=== PATIENT | female | born 1990 | race Caucasian/White ===

== ENCOUNTER 2017-12-17 08:15 | Day surgery (SDC) | payer OTHER ==
[~2017-12-17] VITALS: Ht 157.5 cm; Wt 64.3 kg
[~2017-12-17 08:15] MED LIST: ANTIDEPRESSANT; ANTOXYBENA RIGHTEAR; AZIT250 PO; Amoxicillin500 MG PO; BCP; Bactrim Ds Tab1 EACH PO; CEFD300 PO; CEPH500 PO; CITA20; CYCL10; Colace100 MG PO; DOCU100 PO; Flagyl500 MG PO; HYDACE10B PO; HYDMOR4 PO; HYDR1TAB94 PO; IBUP600 PO; IBUP800; IBUP800 PO; LOPE2C; LORA1 PO; METR500 PO; Macrobid 100 M100 MG PO; Mobic15 MG; NAPR550 PO; Naprosyn500 MG PO; Norco 5-325 Ta1 EACH PO; Nortrel1 EAC1; ONDA4ODT; OXYACE5T; OXYACE5T PO; OXYACEL PO; OXYC1TAB11 PO; OXYC5 PO; PRAHYD1AE TOP; PRENATAL FORMU1 EAC1 PO; PROM25 PO; Percocet 10-321 EACH PO; Percocet 5-3251 EACH PO; Pyridium100 MG PO; SIME80CH PO; SODCHL.65S; TRIA80TC; Ultram50 MG PO; VARE1; Verotin-Gr Cap1 EACH PO; Vibramycin100 MG PO; Zofran Odt4 MG SL; Zofran4 MG PO; Zofran8 MG PO
== END 2017-12-17 12:03 | disposition home or self-care (01) ==
LOC: ORSCSDS 08:15
PROVIDERS: Obstetrics & Gynecology
PROC: 0U5F4ZZ Destruction of Cul-de-sac, Percutaneous Endoscopic Approach (ICD-10-PCS; principal; 2017-12-17 09:30)
DX: N94.6 Dysmenorrhea, unspecified (principal); N94.10 Unspecified dyspareunia; N92.5 Other specified irregular menstruation; N80.3 Endometriosis of pelvic peritoneum; K66.0 Peritoneal adhesions (postprocedural) (postinfection)
CPT/HCPCS: J0171; J0690; J1100; J2250; J2405; J2710; J3010; J7120

== ENCOUNTER 2019-01-03 11:02 | Day surgery (SDC) | payer OTHER ==
[~2019-01-03] VITALS: Ht 160 cm; Wt 65.0 kg
[~2019-01-03 11:02] MED LIST changes: +VARE1 PO; +[UNRECOGNIZED DRUG - OTHER] PO
--- NOTE | 2019-01-03 14:52 | NUR ---
01/03/19 0809 Tita Pacheco RN RECIEVED REPORT FROM [facility]. VSS. PT STATED THAT SHE IS NAUSEATED. RN TREATED WITH IV REGLAN ORDERED. PT IS TOLERATING PO FLUIDS WELL.
== END 2019-01-03 15:55 | disposition home or self-care (01) ==
LOC: ORSCSDS 11:02
PROVIDERS: Obstetrics & Gynecology
PROC: 0UT14ZZ Resection of Left Ovary, Percutaneous Endoscopic Approach (ICD-10-PCS; principal; 2019-01-03 12:30)
PROC: 0U5F4ZZ Destruction of Cul-de-sac, Percutaneous Endoscopic Approach (ICD-10-PCS; principal; 2019-01-03 12:30)
PROC: 0UT64ZZ Resection of Left Fallopian Tube, Percutaneous Endoscopic Approach (ICD-10-PCS; principal; 2019-01-03 12:30)
DX: N80.3 Endometriosis of pelvic peritoneum (principal); R10.2 Pelvic and perineal pain; N94.6 Dysmenorrhea, unspecified; N94.10 Unspecified dyspareunia; K66.0 Peritoneal adhesions (postprocedural) (postinfection); Z87.891 Personal history of nicotine dependence
CPT/HCPCS: 88305; J0690; J1100; J1885; J2250; J2405; J2704; J2765; J3010; J7120

== ENCOUNTER 2019-11-12 12:01 | Day surgery (SDC) | payer OTHER ==
[~2019-11-12] VITALS: Ht 160 cm; Wt 71.0 kg
[2019-11-12 12:58] LABS: BASOPHILS ABSOLUTE AUTO 0.08 K/mm3 (0.00-0.23); BASOPHILS PERCENT AUTO 1 % (0-2); EOSINOPHILS PERCENT AUTO 4 % (0-6); Hematocrit 37.9 % (33.0-51.0); Hemoglobin 12.5 g/dL (11.5-16.0); IMMATURE GRAN ABSOLUTE AUTO 0.02 K/mm3 (0.00-0.10); IMMATURE GRAN PERCENT AUTO 0 % (0-1); LYMPHOCYTES PERCENT AUTO 25 % (21-46); MONOCYTES ABSOLUTE AUTO 0.73 K/mm3 (0.16-1.47); MONOCYTES PERCENT AUTO 9 % (4-13); Mean Corpuscular HGB 30.3 pg (26.0-34.0); Mean Corpuscular Volume 92 fL (80-100); Mean Platelet Volume 10.4 fL (9.1-12.4); NEUTROPHILS ABSOLUTE AUTO 5.18 K/mm3 (1.96-9.15); NEUTROPHILS PERCENT AUTO 62 % (41-73); Platelet Count 331 K/mm3 (150-400); RDW Coefficient Variation 12.7 % (11.7-14.2); RDW Standard Deviation 43.4 fL (35.1-46.3); Red Blood Cell Count 4.13 M/mm3 (3.80-5.20); White Blood Cell Count 8.41 K/mm3 (4.00-11.30)
--- NOTE | 2019-11-12 14:23 | NUR ---
REPORT TO BULMARO SOLORZANO RN.
--- NOTE | 2019-11-12 14:31 | NUR ---
REPORT GIVEN TO PRAKASH MONTOYA RN TO ASSUME CARE OF PATIENT.
--- NOTE | 2019-11-12 14:37 | NUR ---
TOOK REPORT FROM URIEL NUÑEZ. ASSUMED CARE OF PT. PT STATES NO NEEDS AT THIS TIME. CALL LIGHT WITHIN REACH. WILL CONTINUE TO MONITOR.
--- NOTE | 2019-11-12 15:04 | NUR ---
ASSISTED PT TO RESTROOM AND BACK. PT TOW.
--- NOTE | 2019-11-12 17:20 | NUR ---
PT INTO STEP. TOLERATING HOT CHOCOLATE AND APPLESAUSE. NO C/O NAUSEA. PAIN "TOLERABLE" AT 09/01. PT STATES NO FURTHER NEEDS AT THIS TIME.
--- NOTE | 2019-11-12 17:50 | NUR ---
PT TOLERATING CHEESE AND ORAL PAIN MEDICATION. STATES NO FURTHER NEEDS AT THIS TIME. WILL CONTINUE TO MONITOR.
--- NOTE | 2019-11-12 18:39 | NUR ---
Patient up to Ambulate independently. Gait steady. Discharge instructions reviewed with patient. Patient verbalizes understanding. Copy given to patient to take home Discharged via wheelchair to private car for ride home.
== END 2019-11-12 22:41 | disposition home or self-care (01) ==
LOC: ORSCMMR 12:01
PROVIDERS: Obstetrics & Gynecology
PROC: 10D17ZZ Extraction of Products of Conception, Retained, Via Natural or Artificial Opening (ICD-10-PCS; principal; 2019-11-12 14:45)
DX: O02.1 Missed abortion (principal)
CPT/HCPCS: 85025; 86850; 86900; 86901; J0690; J1100; J1885; J2210; J2250; J2405; J2704; J3010; J7120

== ENCOUNTER 2019-11-14 16:24 | Emergency (ER) | payer OTHER ==
[~2019-11-14] VITALS: Ht 157.5 cm; Wt 74.8 kg
[2019-11-14 17:12] LABS: BASOPHILS ABSOLUTE AUTO 0.15 K/mm3 (0.00-0.23); BASOPHILS PERCENT AUTO 1 % (0-2); EOSINOPHILS ABSOLUTE AUTO 0.42 K/mm3 (0.00-0.68); EOSINOPHILS PERCENT AUTO 3 % (0-6); Hematocrit 36.1 % (33.0-51.0); Hemoglobin 11.9 g/dL (11.5-16.0); IMMATURE GRAN ABSOLUTE AUTO 0.04 K/mm3 (0.00-0.10); IMMATURE GRAN PERCENT AUTO 0 % (0-1); LYMPHOCYTES ABSOLUTE AUTO 3.67 K/mm3 (0.84-5.20); LYMPHOCYTES PERCENT AUTO 29 % (21-46); MONOCYTES ABSOLUTE AUTO 0.76 K/mm3 (0.16-1.47); MONOCYTES PERCENT AUTO 6 % (4-13); Mean Corpuscular HGB 30.4 pg (26.0-34.0); Mean Corpuscular Volume 92 fL (80-100); Mean Platelet Volume 10.4 fL (9.1-12.4); NEUTROPHILS ABSOLUTE AUTO 7.43 K/mm3 (1.96-9.15); NEUTROPHILS PERCENT AUTO 60 % (41-73); Platelet Count 353 K/mm3 (150-400); RDW Coefficient Variation 13.1 % (11.7-14.2); RDW Standard Deviation 44.3 fL (35.1-46.3); Red Blood Cell Count 3.91 M/mm3 (3.80-5.20); White Blood Cell Count 12.47 K/mm3 (4.00-11.30)
[2019-11-14] MEDS ORDERED: IBUP800 PO (17:43)
[2019-11-14] MEDS ORDERED: Percocet 5-3251 EACH PO (17:43)
[2019-11-14 17:45] LABS: Alanine Aminotransfer (ALT/SGP 38 U/L (12-78); Albumin, Blood 3.3 g/dL (3.4-5.0); Albumin/Globulin Ratio 0.9 (0.8-1.8); Alk Phos 69 U/L (50-136); Anion Gap 9 mmol/L (6-16); Aspartate Aminotrans (AST/SGOT 28 U/L (12-37); Bilirubin, Total 0.3 mg/dL (0.1-1.0); Blood Urea Nitrogen 14 mg/dL (8-24); Bun/Creatinine Ratio 20.3 (12.0-20.0); CO2, Blood 22 mmol/L (21-32); Calcium, Blood 8.1 mg/dL (8.5-10.1); Chloride, Blood 112 mmol/L (98-108); Creatinine, Blood 0.69 mg/dL (0.40-1.00); Globulin, Blood 3.7 g/dL (2.2-4.0); Glomerular Filtration Rate >60 (60-); Glucose, Blood 104 mg/dL (70-99); Potassium, Blood 3.1 mmol/L (3.5-5.5); Sodium, Blood 143 mmol/L (136-145)
[2019-11-14 17:46] LABS: Source, Urine Clean Catch
[2019-11-14 17:48] LABS: Bilirubin, Urine Neg (Neg); Blood, Urine 1+ (Neg); Glucose Qualitative, Urine Neg (Neg); Ketones, Urine Neg (Neg); Leukocyte Esterase, Urine 1+ (Neg); Nitrite, Urine Neg (Neg); Protein, Urine Neg (Neg); Urobilinogen, Urine NORM (Normal)
[2019-11-14 17:59] LABS: Appearance, Urine Clear (Clear); Color, Urine Yellow (P-Yellow)
[2019-11-14 18:00] LABS: Beta HCG, Quantitative, Serum 1083 mIU/mL (0-3)
[2019-11-14 18:00] LABS: Bacteria Few /hpf; Red Blood Cells, Urine 0-2 /hpf (0-2); Squamous Epithelial Cells Many /hpf (Few); White Blood Cells, Urine 0-2 /hpf (0-5)
[2019-11-14] MEDS ORDERED: CODACE30 PO (18:38)
== END 2019-11-14 19:09 | disposition home or self-care (01) ==
LOC: ER 16:24
PROVIDERS: Physician Assistant
DX: G89.18 Other acute postprocedural pain (principal); R10.2 Pelvic and perineal pain; Z87.891 Personal history of nicotine dependence; Z98.890 Other specified postprocedural states
CPT/HCPCS: 36415; 76857; 80053; 81001; 83605; 83690; 84702; 85025; 87086; 96374; 99284-25; J2405

== ENCOUNTER 2019-12-04 11:48 | Day surgery (SDC) | payer OTHER ==
[~2019-12-04] VITALS: Ht 157.5 cm; Wt 73.0 kg
[~2019-12-04 11:48] MED LIST changes: +CODACE30 PO
[2019-12-04] MEDS ORDERED: PRENATAL VITAM1 EAC5 PO (12:33)
[2019-12-04] MEDS ORDERED: TOPI50 PO (12:33)
[2019-12-04] MEDS ORDERED: SUMA25 PO (12:34)
--- NOTE | 2019-12-04 12:52 | NUR ---
12/04/19 1252 Jocelyn Laws (Elena 1ST IV INFILTRATED BY [facility] INFILTRATED. [facility] [place] 1258
--- NOTE | 2019-12-04 14:52 | NUR ---
12/04/19 1452 O'Neals,Elizabeth PERCOCET GIVEN FOR PAIN 10/02. RESOLVED AFTER 20 MINUTES NOW 08/04. AMBU GAIT STEADY TO HOME
== END 2019-12-04 14:48 | disposition home or self-care (01) ==
LOC: ORSCSDS 11:48
PROVIDERS: Obstetrics & Gynecology
PROC: 10D17ZZ Extraction of Products of Conception, Retained, Via Natural or Artificial Opening (ICD-10-PCS; principal; 2019-12-04 13:00)
DX: O03.4 Incomplete spontaneous abortion without complication (principal); F32.9 Major depressive disorder, single episode, unspecified; R00.0 Tachycardia, unspecified; F17.210 Nicotine dependence, cigarettes, uncomplicated
CPT/HCPCS: 84702; 88305; J0690; J1100; J1885; J2210; J2250; J2405; J2704; J3010; J7120

== ENCOUNTER 2021-10-28 06:06 | Day surgery (SDC) | payer OTHER ==
[~2021-10-28] VITALS: Ht 160 cm; Wt 72.9 kg
[~2021-10-28 06:06] MED LIST changes: +DICL75ER PO; +PRENATAL VITAMIN PLU PO; +SUMA25 PO; +TOPI50 PO
--- NOTE | 2021-10-28 07:06 | NUR ---
PT RECENTLY TO [facility]. FAMILY PRESENT. Ambulatory in Day Surgery. History, Chart, Medications and Allergies reviewed before start of procedure.Lungs clear T/O to Auscultation. Patient confirms NPO status and agrees with scheduled surgery. Pre-Op teaching done. Pt verbalizes understanding. Patient States Post-Procedure ride home has been arranged.
[2021-10-28] MEDS ORDERED: NURTEC ODT75 MG PO (07:14)
--- NOTE | 2021-10-28 08:21 | NUR ---
10/28/21 0821 Kirsten Wolfe PRIOR TO SURGERY START LAFLEUR TABLE IN PLACE & SECURE TO PROTECT PATIENT'S FACE,HEAD, AND INTUBATION TUBE.
--- NOTE | 2021-10-28 12:11 | NUR ---
REPORT TO MIKE DESIR RN. PT AWAKE AND TOLERATING FOOD WITHOUT GRIMACE OR GAURDING.
--- NOTE | 2021-10-28 12:15 | NUR ---
PT REQUEST FOR TO COME IN TO SEE PT, TO SDS/STEP. PT REPORTS HAVING APPLESAUCE FOR SNACK. PT REQ PAIN PILL. PT REPORTS HAVING PERCOCET PREVIOUSLY. PT HAS SMALL AMT OF BLOOD ON ASTRID PAD. INCISIONS APPEAR WNL, SHOWN TO THIS RN BY Comfort TREVINO. PT BEEN ASSISTED WITH ADL'S PRN.
--- NOTE | 2021-10-28 13:56 | NUR ---
Patient up to Ambulate independently. Gait steady. Discharge instructions reviewed with patient. Patient verbalizes understanding. Copy given to patient to take home. Patient States Post-Procedure ride home has been arranged. Discharged via wheelchair to private car for ride home. PT HAD DRAINAGE AFTER STANDING, OTHER FEMALE RN L.H. TO BEDSIDE, REPORTS APPEARS NORMAL AMT AFTER STANDING.
== END 2021-10-28 13:56 | disposition home or self-care (01) ==
LOC: ORSCMMR 06:06 → ORD 07:30 → ORSCMMR 13:56
PROVIDERS: Obstetrics & Gynecology
PROC: 0DNW4ZZ Release Peritoneum, Percutaneous Endoscopic Approach (ICD-10-PCS; principal; 2021-10-28 07:30)
PROC: 0UDB8ZX Extraction of Endometrium, Via Natural or Artificial Opening Endoscopic, Diagnostic (ICD-10-PCS; principal; 2021-10-28 07:30)
DX: N80.3 Endometriosis of pelvic peritoneum (principal); N92.1 Excessive and frequent menstruation with irregular cycle; N94.6 Dysmenorrhea, unspecified; N94.10 Unspecified dyspareunia; R10.2 Pelvic and perineal pain
CPT/HCPCS: 58662; S2900; 84702; 88305; A9270; J0690; J1100; J1885; J2250; J2405; J2704; J3010; J7120

== ENCOUNTER 2022-10-10 06:56 | Day surgery (SDC) | payer OTHER ==
[~2022-10-10] VITALS: Ht 157.5 cm; Wt 75.5 kg
[~2022-10-10 06:56] MED LIST changes: +NURTEC ODT75 MG PO
[2022-10-10] MEDS ORDERED: Bentyl20 MG (07:31)
[2022-10-10 09:26] VITALS: BP 108/70
== END 2022-10-10 09:34 | disposition home or self-care (01) ==
LOC: ORSCSDS 06:56
PROVIDERS: Internal Medicine Gastroenterology
PROC: 0DJD8ZZ Inspection of Lower Intestinal Tract, Via Natural or Artificial Opening Endoscopic (ICD-10-PCS; principal; 2022-10-10 08:15)
PROC: 0DB98ZX Excision of Duodenum, Via Natural or Artificial Opening Endoscopic, Diagnostic (ICD-10-PCS; principal; 2022-10-10 08:15)
PROC: 0DB78ZX Excision of Stomach, Pylorus, Via Natural or Artificial Opening Endoscopic, Diagnostic (ICD-10-PCS; principal; 2022-10-10 08:15)
DX: R19.5 Other fecal abnormalities (principal); R10.84 Generalized abdominal pain; R11.0 Nausea; K25.9 Gastric ulcer, unspecified as acute or chronic, without hemorrhage or perforation; K59.09 Other constipation; Z87.891 Personal history of nicotine dependence; Z79.899 Other long term (current) drug therapy
CPT/HCPCS: 88305; 88342; J2250; J2704; J7120

== ENCOUNTER → 2023-01-03 | Outpatient (CLI) | payer OTHER ==
[~2023-01-03] MED LIST changes: +Bentyl20 MG
[2023-01-03 18:56] LABS: BASOPHILS ABSOLUTE AUTO 0.19 K/mm3 (0.00-0.23); BASOPHILS PERCENT AUTO 2 % (0-2); EOSINOPHILS ABSOLUTE AUTO 1.58 K/mm3 (0.00-0.68); EOSINOPHILS PERCENT AUTO 13 % (0-6); Hematocrit 41.2 % (33.0-51.0); IMMATURE GRAN ABSOLUTE AUTO 0.04 K/mm3 (0.00-0.10); IMMATURE GRAN PERCENT AUTO 0 % (0-1); LYMPHOCYTES ABSOLUTE AUTO 3.24 K/mm3 (0.84-5.20); LYMPHOCYTES PERCENT AUTO 26 % (21-46); MONOCYTES ABSOLUTE AUTO 0.72 K/mm3 (0.16-1.47); MONOCYTES PERCENT AUTO 6 % (4-13); Mean Corpuscular HGB 31.2 pg (26.0-34.0); Mean Corpuscular Volume 92 fL (80-100); Mean Platelet Volume 10.7 fL (9.1-12.4); NEUTROPHILS ABSOLUTE AUTO 6.56 K/mm3 (1.96-9.15); NEUTROPHILS PERCENT AUTO 53 % (41-73); Platelet Count 328 K/mm3 (150-400); RDW Coefficient Variation 12.9 % (11.7-14.2); RDW Standard Deviation 42.9 fL (35.1-46.3); Red Blood Cell Count 4.49 M/mm3 (3.80-5.20); White Blood Cell Count 12.33 K/mm3 (4.00-11.30)
[2023-01-03 19:07] LABS: Albumin, Blood 4.2 g/dL (3.4-5.0); Albumin/Globulin Ratio 1.2 (0.8-1.8); Bilirubin, Total 0.1 mg/dL (0.1-1.0); Bun/Creatinine Ratio 24.1 (12.0-20.0); Calcium, Blood 9.2 mg/dL (8.5-10.1); Creatinine, Blood 0.83 mg/dL (0.40-1.00); Globulin, Blood 3.6 g/dL (2.2-4.0); Potassium, Blood 3.5 mmol/L (3.5-5.5); Total Protein, Blood 7.8 g/dL (6.4-8.2)
== END ==
LOC: LAB 18:52 → LAB SHORT 18:52
PROVIDERS: Family Medicine
DX: R10.9 Unspecified abdominal pain (principal)
CPT/HCPCS: 80053; 83690; 85025

== ENCOUNTER → 2023-04-13 | Outpatient (CLI) | payer OTHER ==
[2023-04-13 10:09] LABS: BASOPHILS PERCENT AUTO 1 % (0-2); EOSINOPHILS PERCENT AUTO 6 % (0-6); Hematocrit 40.2 % (33.0-51.0); Hemoglobin 13.6 g/dL (11.5-16.0); IMMATURE GRAN ABSOLUTE AUTO 0.02 K/mm3 (0.00-0.10); IMMATURE GRAN PERCENT AUTO 0 % (0-1); LYMPHOCYTES ABSOLUTE AUTO 2.45 K/mm3 (0.84-5.20); LYMPHOCYTES PERCENT AUTO 32 % (21-46); MONOCYTES ABSOLUTE AUTO 0.55 K/mm3 (0.16-1.47); MONOCYTES PERCENT AUTO 7 % (4-13); Mean Corpuscular HGB 30.6 pg (26.0-34.0); Mean Corpuscular HGB Conc 33.8 g/dL (31.5-36.5); Mean Corpuscular Volume 91 fL (80-100); Mean Platelet Volume 10.5 fL (9.1-12.4); NEUTROPHILS ABSOLUTE AUTO 4.15 K/mm3 (1.96-9.15); NEUTROPHILS PERCENT AUTO 53 % (41-73); Platelet Count 323 K/mm3 (150-400); RDW Coefficient Variation 12.8 % (11.7-14.2); RDW Standard Deviation 42.2 fL (35.1-46.3); Red Blood Cell Count 4.44 M/mm3 (3.80-5.20); White Blood Cell Count 7.77 K/mm3 (4.00-11.30)
[2023-04-13 10:19] LABS: Albumin, Blood 3.9 g/dL (3.4-5.0); Albumin/Globulin Ratio 1.1 (0.8-1.8); Bilirubin, Total 0.2 mg/dL (0.1-1.0); Bun/Creatinine Ratio 14.1 (12.0-20.0); Creatinine, Blood 0.85 mg/dL (0.40-1.00); Globulin, Blood 3.5 g/dL (2.2-4.0); Potassium, Blood 3.8 mmol/L (3.5-5.5); Total Protein, Blood 7.4 g/dL (6.4-8.2)
== END | disposition home or self-care (01) ==
LOC: LAB 10:02 → LAB SHORT 10:02
PROVIDERS: Physician Assistant
DX: R10.9 Unspecified abdominal pain (principal)
CPT/HCPCS: 80053; 83690; 85025

== ENCOUNTER → 2023-09-24 | Outpatient (CLI) | payer OTHER ==
[~2023-09-24] MED LIST changes: +BACLOFEN5 M1 PO; +BUTALB-ACETAMI1 EAC5 PO; +Bentyl20 MG PO; +Diclofenac Sodi50 MG PO; +LIOT5 PO; +MIRT30 PO; +Metformin HCl750 MG PO; +OMEPRAZOLE20 M2 PO; +ONDA4ODT MM; +ORILISSA150 MG PO; +TOPI100 PO; -TOPI50 PO
[2023-09-24 12:25] LABS: BASOPHILS ABSOLUTE AUTO 0.13 K/mm3 (0.00-0.23); BASOPHILS PERCENT AUTO 1 % (0-2); EOSINOPHILS ABSOLUTE AUTO 0.54 K/mm3 (0.00-0.68); EOSINOPHILS PERCENT AUTO 6 % (0-6); Hematocrit 37.9 % (33.0-51.0); Hemoglobin 12.8 g/dL (11.5-16.0); IMMATURE GRAN ABSOLUTE AUTO 0.03 K/mm3 (0.00-0.10); IMMATURE GRAN PERCENT AUTO 0 % (0-1); LYMPHOCYTES ABSOLUTE AUTO 3.69 K/mm3 (0.84-5.20); LYMPHOCYTES PERCENT AUTO 40 % (21-46); MONOCYTES ABSOLUTE AUTO 0.62 K/mm3 (0.16-1.47); MONOCYTES PERCENT AUTO 7 % (4-13); Mean Corpuscular HGB 30.8 pg (26.0-34.0); Mean Corpuscular HGB Conc 33.8 g/dL (31.5-36.5); Mean Corpuscular Volume 91 fL (80-100); Mean Platelet Volume 10.3 fL (9.1-12.4); NEUTROPHILS ABSOLUTE AUTO 4.28 K/mm3 (1.96-9.15); NEUTROPHILS PERCENT AUTO 46 % (41-73); Platelet Count 373 K/mm3 (150-400); RDW Coefficient Variation 12.4 % (11.7-14.2); RDW Standard Deviation 41.2 fL (35.1-46.3); Red Blood Cell Count 4.16 M/mm3 (3.80-5.20); White Blood Cell Count 9.29 K/mm3 (4.00-11.30)
[2023-09-24 12:36] LABS: Albumin, Blood 4.1 g/dL (3.4-5.0); Albumin/Globulin Ratio 1.2 (0.8-1.8); Bilirubin, Total 0.3 mg/dL (0.1-1.0); Bun/Creatinine Ratio 22.2 (12.0-20.0); Calcium, Blood 9.4 mg/dL (8.5-10.1); Creatinine, Blood 0.72 mg/dL (0.40-1.00); Globulin, Blood 3.4 g/dL (2.2-4.0); Potassium, Blood 3.7 mmol/L (3.5-5.5); Total Protein, Blood 7.5 g/dL (6.4-8.2)
== END ==
LOC: LAB SHORT 12:18 → LAB 12:18
PROVIDERS: Family Medicine
DX: R10.9 Unspecified abdominal pain (principal)
CPT/HCPCS: 80053; 83690; 85025

== ENCOUNTER 2024-08-21 06:05 | Day surgery (SDC) | payer OTHER ==
[~2024-08-21] VITALS: Ht 157.5 cm; Wt 63.3 kg
[2024-08-21] VITALS (15 sets, daily range): BP systolic 94–115; BP diastolic 53–71
[~2024-08-21 06:05] MED LIST changes: +PROG100 PO
[2024-08-21] MEDS ORDERED: CeFAZolin Sodium 2,000 MG in NS 100 ML IV SCH ×2 (06:50→17:30)
[2024-08-21] MEDS ORDERED: Lactated Ringer's 1,000 ML IV SCH ×2 (06:50→14:45)
[2024-08-21] MEDS ORDERED: CeFAZolin Sodium 2,000 MG VIAL ONE ×2 (06:57→18:13)
--- NOTE | 2024-08-21 07:03 | NUR ---
Ambulatory in Day Surgery History, Chart, Medications and Allergies reviewed before start of procedure.Pre-Op teaching done. Pt verbalizes understanding.
[2024-08-21] MEDS ORDERED: Rocuronium Bromide 10 MG/ML 5ML Injection IV ONE ×4 (07:22→13:08)
[2024-08-21] MEDS ORDERED: propofoL 20 ML IV ONE ×2 (07:22→11:16)
[2024-08-21] MEDS ORDERED: Dicyclomine HCl 20 MG Tab PO PRN (10:55)
[2024-08-21] MEDS ORDERED: Sulindac 200 MG Tab PO PRN (11:00)
[2024-08-21] MEDS ORDERED: Midazolam HCl 1MG / ML 2ML Vial ONE (11:17)
[2024-08-21] MEDS ORDERED: Ondansetron HCl 2 MG / ML 2ML Vial ONE (11:38)
[2024-08-21] MEDS ORDERED: Dexamethasone Sod Phos 10 MG/ML 1ML VIAL ONE (11:38)
[2024-08-21] MEDS ORDERED: FentaNYL Citrate 50 MCG/ML 2 ML Injection ONE ×2 (11:57→13:53)
[2024-08-21] MEDS ORDERED: Bupivacaine 0.5% HCl 5 MG/ML 30MLVIAL INJ ONE (12:05)
[2024-08-21] MEDS ORDERED: Sugammadex Sodium 200 MG/2ML SDV (100 MG/ML) ONE (12:58)
[2024-08-21] MEDS ORDERED: Ketorolac Tromethamine 30mg Vial ONE (12:59)
--- NOTE | 2024-08-21 13:30 | NUR ---
ARRIVAL NOTE PT TO ROOM 231 FROM PACU, SLIDE PT TO BED W/ SLIDE SHEET. PT MEDICATED FOR PAIN SHORTLY AFTER ARRIVAL, TOLERATING FLUIDS AND SNACKS. INCISION SITES C/D/I. VSS. SPOUSE AT BEDSIDE. CALL LIGHT IN THE REACH.
[2024-08-21] MEDS ORDERED: HYDROmorphone HCl/Pf 1MG SYR ONE (13:49)
--- NOTE | 2024-08-21 14:11 | NUR ---
08/21/24 1411 Stone,Josefa PARSONS CATHETER REMOVED END OF CASE, TOLERATED WELL 250ML CLEAR URINE
[2024-08-21] MEDS ORDERED: HYDROmorphone HCl 0.5 MG/0.5 ML SYR ONE (14:21)
[2024-08-21] MEDS ORDERED: Bupivacaine 0.5% W/EPI 1:200000 SDV 30 ML Vial ONE (14:21)
[2024-08-21] MEDS ORDERED: Promethazine HCl 25 MG Tab PO PRN (14:40)
[2024-08-21] MEDS ORDERED: Ondansetron HCl 2 MG / ML 2ML Vial IV PRN (14:45)
[2024-08-21] MEDS ORDERED: OxyCODONE 5 mg/Acetamin 325 mg TABLET PO PRN (14:45)
[2024-08-21] MEDS ORDERED: Naloxone HCl 0.4MG / ML 1ML Vial IV PRN (14:45)
[2024-08-21] MEDS ORDERED: Simethicone 80 MG Chew PO PRN (14:45)
[2024-08-21] MEDS ORDERED: Ondansetron 4 MG TAB PO PRN (14:45)
[2024-08-21] MEDS ORDERED: HYDROmorphone HCl 0.5 MG/0.5 ML SYR IV PRN (14:50)
[2024-08-21] MEDS ORDERED: Promethazine HCl 12.5 MG Supp PR PRN (14:50)
[2024-08-21] MEDS ORDERED: FLU VACC TS2024-25(6MOS UP)/PF 45 MCG/0.5 ML SYRINGE IM SCH (14:50)
[2024-08-21] MEDS ORDERED: MetFORMIN HCl 500 mg PO SCH (17:00)
[2024-08-21] MEDS ORDERED: Ketorolac Tromethamine 30mg Vial IV SCH (18:00)
--- NOTE | 2024-08-21 18:48 | NUR ---
SHIFT SUMMARY PT IS PODO FOR LAP HYSTER. PT IS ALERT AND RESPONSIVE, IMPROVEMENT IN PAIN W/ PAIN MEDS BUT PT STILL REPORTING SOME DISCOMFORT. AMBULATING SBA TO BATHROOM, VOIDING, PT MEDICATED FOR NAUSEA POST OP BUT HAS TOLERATING SOME CL AND CRACKERS. VSS. INCISION SITES C/D/I. SCANT VAG BLEEDING. PT USING CALL LIGHT APPROPRIATELY, CALL LIGHT IN REACH.
[2024-08-21] MEDS ORDERED: Baclofen 10 MG Tab PO SCH (21:00)
[2024-08-21] MEDS ORDERED: Progesterone, Micronized 100 MG Cap PO SCH (21:00)
[2024-08-22] MEDS ORDERED: CeFAZolin Sodium 2,000 MG in NS 100 ML IV ONE (00:50)
[2024-08-22 05:06] VITALS: BP 90/59
[2024-08-22] MEDS ORDERED: Liothyronine Sodium 5 MCG Tab PO SCH (06:00)
[2024-08-22 06:02] LABS: BASOPHILS PERCENT AUTO 1 % (0-2); EOSINOPHILS PERCENT AUTO 3 % (0-6); Hematocrit 36.1 % (33.0-51.0); Hemoglobin 11.9 g/dL (11.5-16.0); IMMATURE GRAN ABSOLUTE AUTO 0.05 K/mm3 (0.00-0.10); IMMATURE GRAN PERCENT AUTO 0 % (0-1); LYMPHOCYTES PERCENT AUTO 28 % (21-46); MONOCYTES ABSOLUTE AUTO 0.98 K/mm3 (0.16-1.47); MONOCYTES PERCENT AUTO 7 % (4-13); Mean Corpuscular HGB 30.3 pg (26.0-34.0); Mean Corpuscular Volume 92 fL (80-100); Mean Platelet Volume 10.7 fL (9.1-12.4); NEUTROPHILS ABSOLUTE AUTO 9.11 K/mm3 (1.96-9.15); NEUTROPHILS PERCENT AUTO 61 % (41-73); Platelet Count 327 K/mm3 (150-400); RDW Coefficient Variation 12.8 % (11.7-14.2); RDW Standard Deviation 43.1 fL (35.1-46.3); Red Blood Cell Count 3.93 M/mm3 (3.80-5.20); White Blood Cell Count 14.84 K/mm3 (4.00-11.30)
[2024-08-22 07:29] VITALS: BP 98/68
[2024-08-22 07:38] VITALS: BP 98/68
--- NOTE | 2024-08-22 07:40 | NUR ---
SHIFT SUMMARY NOC. PT POD 1 FOR LAP HYSTER. LAP SITES X 4 ARE C/D/I, ABD BINDER IN PLACE. PT DENIES BLOOD WITH WIPING AFTER VOIDING. PT VOIDING URINE. PT MEDICATED FOR PAIN WITH ORAL NORCO AND BREAK THROUGH DILAUDID. PAIN CONTROL HAS BEEN DIFFICULT FOR PT. BP SOFT WITH SYSTOLIC IN THE 90S. MAP MAINTAINED ABOVE 65. DISCUSSED WITH PRIESTURIEL Herman FLUIDS RUNNING PER EMAR. PT RESTED WITH CALL LIGHT IN REACH.
[2024-08-22] MEDS ORDERED: Topiramate 100 MG Tab PO SCH (09:00)
--- NOTE | 2024-08-22 12:27 | NUR ---
AGREE WITH PULMONARY PHYSICIAN DOCUMENTATION
[2024-08-22 14:59] VITALS: BP 108/69
[2024-08-22] MEDS ORDERED: Percocet 5-3251 EACH PO (17:25)
--- NOTE | 2024-08-22 17:25 | NUR ---
SHIFT SUMMARY: PT POD 1 FOR LAP HYSTER. LAP SITES X4 ARE C/D/I.ABD BINDER IN PLACE.PT DENIES BLEEDING. ORAL PERCOCET FOR PAIN CONTROL. TOLERATING ORAL INTAKE WELL. PT SALINE LOCKED IV. PLAN TO DISCHARGE HOME. CALL LIGHT IN REACH. BED IN LOWEST POSITION.
[2024-08-22] MEDS ORDERED: PROM25 PO (17:29)
[2024-08-22] MEDS ORDERED: SIME80CH PO (17:30)
--- NOTE | 2024-08-22 18:23 | NUR ---
DISCHARGE SUMMARY: PT EDUCATED ON DISHARGE INSTRUCTIONS. PT SPOUSE AT BEDSIDE FOR DISCHARGE. PT VERBALIZED UNDERSTANDING. IV DC'D. GATHERED ALL PERSONAL BELONGINGS. ESCORTED OUT VIA WHEELCHAIR.
== END 2024-08-22 18:30 | disposition home or self-care (01) ==
LOC: ORSCMMR 06:05 → ORD 07:30 → SURS 15:04 → ORSCMMR 15:04 → SURS 08-22 18:30 → ORSCMMR 08-22 18:30
PROVIDERS: Obstetrics & Gynecology
PROC: 0UBF4ZZ Excision of Cul-de-sac, Percutaneous Endoscopic Approach (ICD-10-PCS; principal; 2024-08-21 10:30)
PROC: 0UB04ZZ Excision of Right Ovary, Percutaneous Endoscopic Approach (ICD-10-PCS; principal; 2024-08-21 10:30)
PROC: 0UT9FZZ Resection of Uterus, Via Natural or Artificial Opening With Percutaneous Endoscopic Assistance (ICD-10-PCS; principal; 2024-08-21 10:30)
PROC: 0UT5FZZ Resection of Right Fallopian Tube, Via Natural or Artificial Opening With Percutaneous Endoscopic Assistance (ICD-10-PCS; principal; 2024-08-21 10:30)
DX: N92.1 Excessive and frequent menstruation with irregular cycle (principal); N80.9 Endometriosis, unspecified; N94.6 Dysmenorrhea, unspecified; N94.10 Unspecified dyspareunia; R10.2 Pelvic and perineal pain; N83.11 Corpus luteum cyst of right ovary; E11.9 Type 2 diabetes mellitus without complications; E03.9 Hypothyroidism, unspecified; Z79.899 Other long term (current) drug therapy; Z79.84 Long term (current) use of oral hypoglycemic drugs; Z87.891 Personal history of nicotine dependence
CPT/HCPCS: 36415; 85025; 86850; 86900; 86901; 88307; 94762; A9270; J0690; J1100; J1171; J1885; J2250; J2405; J2704; J3010; J7120

== ENCOUNTER → 2024-10-15 | Outpatient (CLI) | payer OTHER ==
[2024-10-15 12:41] LABS: BASOPHILS ABSOLUTE AUTO 0.14 K/mm3 (0.00-0.23); BASOPHILS PERCENT AUTO 2 % (0-2); EOSINOPHILS PERCENT AUTO 5 % (0-6); Hematocrit 36.9 % (33.0-51.0); Hemoglobin 12.4 g/dL (11.5-16.0); IMMATURE GRAN ABSOLUTE AUTO 0.02 K/mm3 (0.00-0.10); IMMATURE GRAN PERCENT AUTO 0 % (0-1); LYMPHOCYTES ABSOLUTE AUTO 3.37 K/mm3 (0.84-5.20); LYMPHOCYTES PERCENT AUTO 41 % (21-46); MONOCYTES ABSOLUTE AUTO 0.48 K/mm3 (0.16-1.47); MONOCYTES PERCENT AUTO 6 % (4-13); Mean Corpuscular HGB 30.8 pg (26.0-34.0); Mean Corpuscular HGB Conc 33.6 g/dL (31.5-36.5); Mean Corpuscular Volume 92 fL (80-100); Mean Platelet Volume 10.2 fL (9.1-12.4); NEUTROPHILS PERCENT AUTO 46 % (41-73); Platelet Count 382 K/mm3 (150-400); RDW Coefficient Variation 12.8 % (11.7-14.2); RDW Standard Deviation 42.4 fL (35.1-46.3); Red Blood Cell Count 4.03 M/mm3 (3.80-5.20); White Blood Cell Count 8.21 K/mm3 (4.00-11.30)
[2024-10-15 12:52] LABS: Albumin, Blood 4.2 g/dL (3.4-5.0); Albumin/Globulin Ratio 1.3 (0.8-1.8); Bilirubin, Total 0.2 mg/dL (0.1-1.0); Bun/Creatinine Ratio 24.7 (12.0-20.0); Calcium, Blood 9.1 mg/dL (8.5-10.1); Creatinine, Blood 0.73 mg/dL (0.40-1.00); Globulin, Blood 3.2 g/dL (2.2-4.0); Potassium, Blood 3.6 mmol/L (3.5-5.5); Total Protein, Blood 7.4 g/dL (6.4-8.2)
== END ==
LOC: LAB 12:36 → LAB SHORT 12:36
PROVIDERS: Physician Assistant
DX: R10.9 Unspecified abdominal pain (principal)
CPT/HCPCS: 80053; 83690; 85025